=== PATIENT | female | born 1965 | race Caucasian/White ===

== ENCOUNTER 2019-11-26 07:17 | Inpatient (IN) | payer BC ==
[2019-11-21 12:55] VITALS: BMI 39.5
[2019-11-26] MEDS ORDERED: ROCURONIUM BROMIDE 50 MG/5 ML SYRINGE ONE (07:54)
[2019-11-26] MEDS ORDERED: fentaNYL CITRATE 250 MCG/5 ML VIAL ONE (07:54)
[2019-11-26] MEDS ORDERED: DEXAMETHASONE SOD PHOSPHATE 4 MG/1 ML VIAL ONE (07:54)
[2019-11-26] MEDS ORDERED: SUCCINYLCHOLINE CHLORIDE 200 MG/10 ML SYRINGE ONE (07:54)
[2019-11-26] MEDS ORDERED: ceFAZolin SODIUM 1 GM VIAL ONE (07:54)
[2019-11-26] MEDS ORDERED: PROPOFOL 20 ML ONE ×2 (07:54)
[2019-11-26] MEDS ORDERED: SODIUM CHLORIDE 0.9% P/F 10 ML VIAL IJ ONE (07:54)
[2019-11-26] MEDS ORDERED: EPHEDRINE SULFATE/0.9% NACL/PF 50 MG/10 ML SYRINGE NR ONE (07:55)
[2019-11-26] MEDS ORDERED: ROPIVACAINE HCL 0.5% 30ML VIAL ONE (08:14)
[2019-11-26] MEDS ORDERED: MIDAZOLAM HCL 2 MG/2 ML SINGLE DOSE VIAL ONE (08:14)
[2019-11-26] MEDS ORDERED: HYDROmorphone HCL CARPU-JECT 1 MG/1 ML DISP.SYRIN IVPUSH PRN (08:35)
[2019-11-26] MEDS ORDERED: ONDANSETRON 4 MG/2 ML VIAL IVPUSH PRN (08:35)
[2019-11-26] MEDS ORDERED: LACTATED RINGERS SOLUTION 1,000 ML IV SCH (08:45)
[2019-11-26] MEDS ORDERED: ACETAMINOPHEN INJECTION 100 ML IVPB ONE (09:46)
[2019-11-26] MEDS ORDERED: SCOPOLAMINE HYDROBROMIDE 1 PATCH PATCH.TD72 ONE (09:46)
--- NOTE | 2019-11-26 09:49 | HP ---
Admitting History and Physical - Admission Chief Complaint: Morbid obesity History Source: Patient Limitations to Obtaining History: No Limitations - Past Medical History Cardiovascular: Yes: AFIB, Other (Right bundle branch block) Pulmonary: Yes: COPD - Past Surgical History Additional Past Surgical History: Rotator cuff surgery Cholecystectomy - Advance Directives Advance Directives: Yes: Health Care Proxy - Smoking History Smoking history: Never smoked Have you smoked in the past 12 months: No - Social History ADL: Independent Home Medications - Allergies Allergies/Adverse Reactions: Allergies Allergy/AdvReac Type Severity Reaction Status Date / Time montelukast [From Singulair] Allergy Verified 11/21/19 12:37 moxifloxacin [From Avelox] Allergy Hives Verified 11/21/19 12:37 combined fruit Allergy Uncoded 11/21/19 12:37 mold Allergy Uncoded 11/21/19 12:37 red shellfish Allergy Uncoded 11/21/19 12:37 - Home Medications Home Medications: Ambulatory Orders Budesonide/Formeterol Fumarate [SYMBICORT 160/4.5mcg -] 1 inh PO BID 11/21/19 Escitalopram Oxalate [Lexapro -] 5 mg PO DAILY 11/21/19 Levothyroxine [Synthroid -] 75 mcg PO HS 11/21/19 Metoprolol Tartrate [Lopressor -] 25 mg PO BID 11/21/19 Docusate Sodium [Colace -] 100 mg PO TID #90 capsule 11/26/19 Famotidine [Pepcid] 20 mg PO BID #60 tablet 11/26/19 Ondansetron [Zofran -] 8 mg PO TID #30 tablet 11/26/19 Oxycodone HCl/Acetaminophen [Percocet 5-325 mg Tablet] 1 - 2 tab PO Q4H #28 tablet MDD 4 11/26/19 Family Medical History Family History: Unremarkable Review of Systems - Review of Systems Constitutional: denies: Chills, Fever HENT: reports: No Symptoms Neck: reports: No Symptoms Cardiovascular: reports: No Symptoms Respiratory: reports: No Symptoms Gastrointestinal: reports: No Symptoms Neurological: reports: No Symptoms Pain Intensity: 0 Physical Examination Vital Signs: Vital Signs Temperature 98.3 F 11/26/19 08:04 Pulse Rate 82 11/26/19 08:04 Respiratory Rate 18 11/26/19 08:04 Blood Pressure 113/80 11/26/19 08:04 O2 Sat by Pulse Oximetry (%) Constitutional: Yes: Calm HENT: Yes: WNL Neck: Yes: WNL Cardiovascular: Yes: WNL Respiratory: Yes: WNL Gastrointestinal: Yes: Soft, Abdomen, Obese Neurological: Yes: Alert, Oriented Problem List - Problems (1) Morbid obesity due to excess calories Code(s): E66.01 - MORBID (SEVERE) OBESITY DUE TO EXCESS CALORIES Assessment/Plan Laparoscopic possible open vertical sleeve gastrectomy possible liver biopsy, upper endoscopy
[2019-11-26] MEDS ORDERED: NEOSTIGMINE METHYLSULFATE 0.5 MG/ML - 10 ML MDV ONE (10:37)
[2019-11-26] MEDS ORDERED: GLYCOPYRROLATE 0.2 MG/1 ML VIAL ONE (10:38)
[2019-11-26] MEDS ORDERED: ONDANSETRON 4 MG/2 ML VIAL ONE (10:56)
[2019-11-26] MEDS ORDERED: BUPIVACAINE HCL/PF 0.25% (2.5MG/ML) 10 ML VIAL IJ ONE (11:15)
[2019-11-26] MEDS ORDERED: HYDROmorphone HCL CARPU-JECT 1 MG/1 ML DISP.SYRIN IVPB PRN (11:21)
--- NOTE | 2019-11-26 11:25 | OPR ---
Operative Note Operative Date: 11/26/19 Pre-Operative Diagnosis: Morbid obesity Operation: 1. Diagnostic laparoscopy. 2. Laparoscopic vertical sleeve gastrectomy. 3. Laparoscopic wedge liver biopsy. 4. Laparoscopic oversewing of gastric staple line Post-Operative Diagnosis: Same as Pre-op (as well as hepatomegaly and oozing from gastric staple line) Surgeon: Kirill Luna Shirt Sorter: Kiko Welch Anesthesia: General Specimens Removed: Greater curvature of stomach. Liver biopsy. Estimated Blood Loss (mls): 30 Drains & Tubes with Location: 36 Fr Bougie Operative Report Dictated: Yes
[2019-11-26] MEDS ORDERED: FAMOTIDINE 20 MG/50 ML IVPB 20 MG/50 ML MG IVPB ONE (11:27)
[2019-11-26] MEDS: METOCLOPRAMIDE HCL INJECTION 10 MG/2 ML VIAL IVPUSH SCH ×3 (11:28→22:42)
[2019-11-26] MEDS ORDERED: SODIUM CHLORIDE 1,000 ML IV SCH (11:30)
[2019-11-26] MEDS: ONDANSETRON 4 MG/2 ML VIAL IVPUSH SCH ×4 (11:31→22:42)
[2019-11-26] MEDS ORDERED: FAMOTIDINE 20 MG PREMIXED IVPB IVPB ONE (11:40)
[2019-11-26] MEDS: HYDROmorphone HCL CARPU-JECT 1 MG/1 ML DISP.SYRIN IVPUSH PRN ×2 (11:50→12:10)
[2019-11-26] MEDS ORDERED: HYDROmorphone HCL 0.5 MG/0.5 ML SYRINGE ONE ×2 (11:52→12:10)
[2019-11-26 12:05] LABS: HEMOGLOBIN 12.4 GM/dl (10.7-15.3); MCH 29.7 pg (25.7-33.7); PLATELET COUNT 317 K/MM3 (134-434); RBC 4.16 M/mm3 (3.60-5.2); WHITE BLOOD COUNT 11.9 K/mm3 (4.0-10.8)
[2019-11-26 12:44] LABS: ALBUMIN 3.9 g/dl (3.4-5.0); BILIRUBIN,TOTAL 0.6 mg/dl (0.2-1); CALCIUM 8.4 mg/dl (8.5-10); CREATININE 0.6 mg/dl (0.55-1.3); POTASSIUM 4.2 mmol/L (3.5-5.1); TOT PROT 7.1 g/dl (6.4-8.2)
[2019-11-26 12:52] LABS: HEMATOCRIT 36.8 % (32.4-45.2); MCHC 33.6 g/dl (32.0-36.0); MEAN CELL VOLUME 88.4 fl (80-96); MEAN PLT VOLUME 7.8 fl (7.5-11.1); RDW 14.4 % (11.6-15.6)
[2019-11-26] MEDS: ACETAMINOPHEN 1000 MG/100 ML VIAL (NON FORMULARY) IVPB SCH ×3 (14:35→22:42)
[2019-11-26] MEDS: BUDESONIDE/FORMETEROL FUMARATE 160/4.5 mcg INHALER IH SCH (22:00)
[2019-11-26] MEDS: ENOXAPARIN NA (PORCINE) 40 MG/0.4 ML DISP.SYRIN SQ SCH (22:00)
[2019-11-26] MEDS: FAMOTIDINE 20 MG/50 ML IVPB 20 MG/50 ML MG IVPB SCH (22:01)
--- NOTE | 2019-11-26 23:53 | SPEC ---
DATE OF OPERATION: 11/26/2019 SURGEON: Kirill Luna MD COREMAKING MACHINE OPERATOR: Kiko Welch MD PLACE OF SERVICE: [facility], [address] [place] [address]. PREOPERATIVE DIAGNOSIS: Morbid obesity. POSTOPERATIVE DIAGNOSIS: Morbid obesity, hepatomegaly, and oozing from gastric staple line. PROCEDURE: 1. Diagnostic laparoscopy. 2. Laparoscopic vertical sleeve gastrectomy. 3. Laparoscopic wedge liver biopsy. 4. Laparoscopic oversewing of gastric staple line for oozing. SPECIMEN: 1. Greater curvature of the stomach. 2. Liver biopsy. ESTIMATED BLOOD LOSS: 30 mL. DRAINS: None. ANESTHESIA: GET. TUBE: Bougie 36-Polish. REASON FOR PROCEDURE: This is a 54-year-old female who presents for weight loss options. I have described different options. She decided to proceed with laparoscopic, possible open vertical sleeve gastrectomy, possible liver biopsy, upper endoscopy. RISKS AND BENEFITS: After describing the different options for weight loss management, the patient decided to proceed with a laparoscopic, possible open vertical sleeve gastrectomy. The patient was seen by the respective subspecialties and cleared for surgery. The risks and benefits of the procedure were explained. These included bleeding, infection, hernia, VT, DVT, PE, injury to surrounding structures including the liver, colon, bowel, spleen, esophagus, vessel injury, nerve injury, weight regain, gastric leak, staple line leak, sleeve leak, obstruction, vitamin deficiency, hair loss and as some of the possible complications. The patient understood and signed informed consent. DESCRIPTION OF PROCEDURE: The patient was placed supine on the operating room table. The patient underwent general endotracheal intubation. The arms were brought out at 90 degrees and secured. A footboard was placed and the legs were secured laterally with padding. The abdomen was prepped and draped in the usual sterile fashion. A timeout was performed. An incision was made in the left upper quadrant and a Veress needle inserted. Pneumoperitoneum was established. Subsequently, the Veress needle was removed and a 5-mm trocar was placed under direct visualization with the laparoscope. The laparoscopic camera was then inserted and inspection of the abdominal cavity was performed. An incision was then made in the supraumbilical area and a 15-mm trocar was placed under direct visualization. A 5-mm trocar was then placed in the right upper quadrant and a 5-mm trocar was placed below the left subcostal margin. A stab wound was made in the subxiphoid area and a Tiffany clamp inserted and removed to dilate the tract. A Srinivasa liver retractor was inserted. The post was secured at the bedside by the nursing staff. The patient was placed in steep reverse Trendelenburg position and the Srinivasa liver retractor was used to secure the liver towards the anterior abdominal wall. The pylorus was identified and 6 cm proximal to it, the lesser sac was entered using the LigaSure device. All lateral attachments to the greater curvature of the stomach, including the short gastric vessels, were ligated using the LigaSure device toward the gastrosplenic and gastrophrenic ligaments. Once this was done in its entirety, it was confirmed that all tubes within the nasal or oropharyngeal cavity, including a temperature probe were removed by Anesthesia. The bougie was then inserted by Anesthesia. Transection of the stomach was then begun staying adjacent to the bougie but away from the angularis. Transection of the stomach was performed near the portion of the stomach where the lesser sac was entered. Two laparoscopic Endo-MARBELLA black zeynep were used at this location. Laparoscopic Endo MARBELLA purple staple loads were then used for the remainder of the transection until the greater curvature of the stomach was fully transected. This was done staying close to the bougie. Care was taken to stay away from the angle of His cephalad. The staple line was then inspected. Hemostasis was identified. A leak test was then performed. It was clamped distally to the staple line. Irrigation solution was placed in the left upper quadrant and air was insufflated by Anesthesia into the sleeve. No leaks were identified. No obstruction was identified. This was done through the entirety of the staple line. The stomach was suctioned and the bougie removed fully intact under direct visualization. At this point, the irrigation solution was suctioned and again, hemostasis was noted. A wedge liver biopsy was then performed. The left lobe of the liver was identified. A portion of the edge of the left lobe of the liver was grasped. Using electrocautery, a wedge of the left liver was excised. The specimen was removed and sent off the field. Hemostasis of the wedge liver biopsy site was attained and noted using electrocautery. The 15-mm supraumbilical trocar was then removed and the greater curvature specimen removed from the site using a sponge stick mendoza. A Frankie-Dakotah device was then used to close the fascia with a 0 Vicryl suture at the site. Again, hemostasis was noted. The Srinivasa liver retractor was then removed under direct visualization. Pneumoperitoneum was desufflated. Hemostasis was noted at all incision sites and Marcaine was injected at all incision sites. A 3-0 Vicryl suture was used to close the deep subcutaneous tissue at the 15-mm incision site. All incision sites were closed using 4-0 Biosyn. Sterile dressings were applied. The patient tolerated the procedure well and was transferred to the recovery room in stable condition. Please note, that because of oozing at the gastric staple line, oversewing of the staple line was needed with an Endo Stitch device. All hemostasis was noted. Patient tolerated the procedure well and transferred to the recovery room in stable condition. Robin [id number]
[2019-11-27] MEDS: ONDANSETRON 4 MG/2 ML VIAL IVPUSH SCH ×3 (03:30→11:30)
[2019-11-27] MEDS: METOCLOPRAMIDE HCL INJECTION 10 MG/2 ML VIAL IVPUSH SCH ×2 (04:53→10:48)
[2019-11-27 06:17] VITALS: BP 102/61; PULSE 76; TEMP 98.4
[2019-11-27] MEDS: ACETAMINOPHEN 1000 MG/100 ML VIAL (NON FORMULARY) IVPB SCH (06:32)
[2019-11-27] MEDS ORDERED: LEVOTHYROXINE NA 75 MCG TABLET (FP) PO SCH (07:00)
--- NOTE | 2019-11-27 07:54 | DS ---
Physical Exam: SUBJECTIVE: Patient seen and examined this am. She had some nausea overnight which improved with medications. No CP or SOB. Abdominal pain, controlled. Voiding without difficulty. OBJECTIVE: Vital Signs Period Temp Pulse Resp BP Sys/[place] Pulse Ox Last 24 Hr 97.7 F-98.4 F 59-82 18-20 102-142/46-80 95-100 PHYSICAL EXAM GENERAL: The patient is awake, alert, and fully oriented, in no acute distress. LUNGS: Breath sounds equal, clear to auscultation bilaterally, no wheezes, no crackles, no accessory muscle use. HEART: Regular rate and rhythm.. ABDOMEN: Soft, nontender, nondistended. Inc tenderness. Inc c/d/i. EXTREMITIES: b/l soft, no calf tenderness or swelling noted SCDS in place. LABS Laboratory Results - last 24 hr 11/26/19 11/26/19 11:30 11:30 WBC 11.9 H RBC 4.16 Hgb 12.4 Hct 36.8 MCV 88.4 MCH 29.7 MCHC 33.6 RDW 14.4 Plt Count 317 MPV 7.8 Sodium 135 L Potassium 4.2 Chloride 104 Carbon Dioxide 21 Anion Gap 10 BUN 10.0 Creatinine 0.6 Est GFR (CKD-EPI)AfAm 118.09 Est GFR (CKD-EPI)NonAf 101.89 Random Glucose 112 H Calcium 8.4 L Total Bilirubin 0.6 AST 37 ALT 31 Alkaline Phosphatase 57 Total Protein 7.1 Albumin 3.9 CBC, BMP 11/27/19 07:15 11/27/19 07:15 HOSPITAL COURSE: HOSPITAL COURSE: The patient was admitted to the Med-Surg Unit after elective bariatric surgery. Now, s/p laparoscopic vertical sleeve gastrectomy. The day of surgery, the patient ambulated the hallways with assistance. The patient was monitored with remote tele/continuous pulse ox. Narcotic and non-narcotic pain management control was achieved with oral and IV pain control. Upper GI series was obtained the following morning and no leak, extravastion or gastric outlet obstruction. Started on a Bariatric Stage 1 diet and tolerated well. Becky-operative IV ABX were administered in addition to GI prophylaxis. DVT prophylaxis was achieved with SCDs and early ambulation. The discharge instructions and an oral pain management plan were reviewed with the patient. All questions answered. Above plan discussed with Dr. Luna and agreed. Minutes to complete discharge: 20 <Metzen,Abigail - Last Filed: 11/27/19 15:32> Physical Exam: SUBJECTIVE: Patient seen and examined OBJECTIVE: Vital Signs Period Temp Pulse Resp BP Sys/[place] Pulse Ox Last 24 Hr 98.3 F-98.4 F 73-79 18-18 102-120/46-61 98-100 PHYSICAL EXAM GENERAL: The patient is awake, alert, and fully oriented, in no acute distress. HEAD: Normal with no signs of trauma. EYES: PERRL, extraocular movements intact, sclera anicteric, conjunctiva clear. ENT: Ears normal, nares patent, oropharynx clear without exudates, moist mucous membranes. NECK: Trachea midline, full range of motion, supple. LUNGS: Breath sounds equal, clear to auscultation bilaterally, no wheezes, no crackles, no accessory muscle use. HEART: Regular rate and rhythm, S1, S2 without murmur, rub or gallop. ABDOMEN: Soft, nontender, nondistended, normoactive bowel sounds, no guarding, no rebound, no hepatosplenomegaly, no masses. EXTREMITIES: 2+ pulses, warm, well-perfused, no edema. NEUROLOGICAL: Cranial nerves II through XII grossly intact. Normal speech, gait not observed. PSYCH: Normal mood, normal affect. SKIN: Warm, dry, normal turgor, no rashes or lesions noted. LABS Laboratory Results - last 24 hr 11/27/19 11/27/19 07:15 07:15 WBC 12.2 H RBC 3.65 Hgb 11.0 Hct 32.2 L MCV 88.3 MCH 30.1 MCHC 34.0 RDW 14.0 Plt Count 297 MPV 7.4 L Sodium 137 Potassium 4.4 Chloride 105 Carbon Dioxide 24 Anion Gap 8 BUN 10.0 Creatinine 0.6 Est GFR (CKD-EPI)AfAm 118.09 Est GFR (CKD-EPI)NonAf 101.89 Random Glucose 94 Calcium 8.1 L Total Bilirubin 0.5 AST 33 ALT 30 Alkaline Phosphatase 48 Total Protein 6.0 L Albumin 3.2 L HOSPITAL COURSE: Date of Admission:11/26/19 Date of Discharge: 11/27/19 Agree POD 1 Pain controlled Vital Signs Period Temp Pulse Resp BP Sys/[place] Pulse Ox Last 24 Hr 98.3 F-98.4 F 73-79 18-18 102-120/46-61 98-100 CBC,CMP WBC 12.2 K/mm3 (4.0-10.8) H 11/27/19 07:15 RBC 3.65 M/mm3 (3.60-5.2) 11/27/19 07:15 Hgb 11.0 GM/dl (10.7-15.3) 11/27/19 07:15 Hct 32.2 % (32.4-45.2) L 11/27/19 07:15 MCV 88.3 fl (80-96) 11/27/19 07:15 MCH 30.1 pg (25.7-33.7) 11/27/19 07:15 MCHC 34.0 g/dl (32.0-36.0) 11/27/19 07:15 RDW 14.0 % (11.6-15.6) 11/27/19 07:15 Plt Count 297 K/MM3 (134-434) 11/27/19 07:15 MPV 7.4 fl (7.5-11.1) L 11/27/19 07:15 Sodium 137 mmol/L (136-145) 11/27/19 07:15 Potassium 4.4 mmol/L (3.5-5.1) 11/27/19 07:15 Chloride 105 mmol/L (98-107) 11/27/19 07:15 Carbon Dioxide 24 mmol/L (21-32) 11/27/19 07:15 Anion Gap 8 MMOL/L (8-16) 11/27/19 07:15 BUN 10.0 mg/dl (7-18) 11/27/19 07:15 Creatinine 0.6 mg/dl (0.55-1.3) 11/27/19 07:15 Est GFR (CKD-EPI)AfAm 118.09 11/27/19 07:15 Est GFR (CKD-EPI)NonAf 101.89 11/27/19 07:15 Random Glucose 94 mg/dl (74-106) 11/27/19 07:15 Calcium 8.1 mg/dl (8.5-10) L 11/27/19 07:15 Total Bilirubin 0.5 mg/dl (0.2-1) 11/27/19 07:15 AST 33 U/L (15-37) 11/27/19 07:15 ALT 30 U/L (13-61) 11/27/19 07:15 Alkaline Phosphatase 48 U/L (45-117) 11/27/19 07:15 Total Protein 6.0 g/dl (6.4-8.2) L 11/27/19 07:15 Albumin 3.2 g/dl (3.4-5.0) L 11/27/19 07:15 UGI: no leak/obstruction Clears Discharge home <Kirill Luna - Last Filed: 11/27/19 16:18> Discharge Summary Problems reviewed: Yes Current Active Problems Hepatomegaly (Acute) Morbid obesity due to excess calories (Acute) - Home Medications Comprehensive Discharge Medication List: Ambulatory Orders Budesonide/Formeterol Fumarate [SYMBICORT 160/4.5mcg -] 1 inh PO BID 11/21/19 Escitalopram Oxalate [Lexapro -] 5 mg PO DAILY 11/21/19 Levothyroxine [Synthroid -] 75 mcg PO HS 11/21/19 Metoprolol Tartrate [Lopressor -] 25 mg PO BID 11/21/19 Docusate Sodium [Colace -] 100 mg PO TID #90 capsule 11/26/19 Famotidine [Pepcid] 20 mg PO BID #60 tablet 11/26/19 Ondansetron [Zofran -] 8 mg PO TID #30 tablet 11/26/19 Oxycodone HCl/Acetaminophen [Percocet 5-325 mg Tablet] 1 - 2 tab PO Q4H #28 tablet MDD 4 11/26/19 <Abigail Rawls - Last Filed: 11/27/19 15:32> Current Active Problems Hepatomegaly (Acute) Morbid obesity due to excess calories (Acute) - Home Medications Comprehensive Discharge Medication List: Ambulatory Orders Budesonide/Formeterol Fumarate [SYMBICORT 160/4.5mcg -] 1 inh PO BID 11/21/19 Escitalopram Oxalate [Lexapro -] 5 mg PO DAILY 11/21/19 Levothyroxine [Synthroid -] 75 mcg PO HS 11/21/19 Metoprolol Tartrate [Lopressor -] 25 mg PO BID 11/21/19 Docusate Sodium [Colace -] 100 mg PO TID #90 capsule 11/26/19 Famotidine [Pepcid] 20 mg PO BID #60 tablet 11/26/19 Ondansetron [Zofran -] 8 mg PO TID #30 tablet 11/26/19 Oxycodone HCl/Acetaminophen [Percocet 5-325 mg Tablet] 1 - 2 tab PO Q4H #28 tablet MDD 4 11/26/19 <JeremyGiselleKirill - Last Filed: 11/27/19 16:18> Reason For Visit: MORBID OBESITY Condition: Stable - Instructions Diet, Activity, Other Instructions: [address] Kirill Luna M.D. [address] [facility] [address] [place] [address] Robotic, [place]ariatric [place] [address] Postoperative Instructions for Bariatric Surgery Activity: Resume normal everyday activity as tolerated. You may walk and climb stairs without any limitation. We encourage you to walk as often as you can Do not lift anything more than 10 pounds for 8 weeks. At that time, you can return to full activity, including the gym, without limitation. Do not drive a motor vehicle while taking prescribes narcotic pain medication. Wound Care: If you have a bandage in place, leave it on for 3 days. At that time you may remove the outer bandage. If there are strips of tape on the skin after removing the outer bandage, leave them in place. They will fall off by themselves. Do not remove them. If there is clear glue on the skin after removing the outer bandage, leave it in place. Do not pick at it or peel it off. You may shower after taking the outer bandage off, 3 days after your surgery. If incisions become red, warm or open, please call the office. Diet: Continue a sugar-free, non-carbonated Clear liquid diet three times a day for the first week-Stage I diet. In addition, you should drink 8 ounces of water every hour. When drinking, sips should be slow and steady, not large and quick. After the first week, call the office to be advanced to the next dietary stage. Do not advance stages until instructed. Your diet will be advanced over the phone each week. Medications/Pain Management: You may resume previous medications unless told otherwise. The pills may be swallowed whole or broken if scored. You may take the prescribed narcotic pain medication as needed. If the narcotic medication is not needed for pain control, you may take Tylenol. Avoid all other pain medications including Advil, Ibuprofen, Motrin, Aspirin, Naprosyn, Aleve, Celebrex. You will receive Pepcid. Please take this twice a day as prescribed. Dizziness,Headaches/Gas Pain: Make sure you are getting enough fluids daily. Patients on diuretics or water pills may need medication adjusted. Some fluids such as broth or Gatorade may help. Gas pains are common in the first few weeks after surgery. At times they can be worse than surgical pain. Walking can help. You can also use Mylanta, Maalox, or Gas-X. Vomiting/Nausea: This may occur if you eat too fast, don't chew, or eat too much. Go back to fluids. If the vomiting or nausea persists, call the office. Constipation/Diarrhea: You may experience a change in bowel habits. Many things affect this, including a decrease in food intake, not enough fluid and taking pain medication. Some people experience diarrhea after the barium swallow in x-ray. If either persist, call the office. Follow up: Call the office at [phone] for an appointment 2 weeks after your surgical procedure. Disposition: HOME Problem List - Problems (1) Morbid obesity due to excess calories Code(s): E66.01 - MORBID (SEVERE) OBESITY DUE TO EXCESS CALORIES <Kirill Luna - Last Filed: 11/27/19 16:18> This patient is new to me today: Yes Date on this admission: 11/27/19 Emergency Visit: No Critical Care patient: No - Discharge Referral Referred to [facility] Med P.C.: No <Abigail Rawls - Last Filed: 11/27/19 15:32>
[2019-11-27 08:16] LABS: HEMATOCRIT 32.2 % (32.4-45.2); MCH 30.1 pg (25.7-33.7); MEAN CELL VOLUME 88.3 fl (80-96); MEAN PLT VOLUME 7.4 fl (7.5-11.1); PLATELET COUNT 297 K/MM3 (134-434); RBC 3.65 M/mm3 (3.60-5.2); WHITE BLOOD COUNT 12.2 K/mm3 (4.0-10.8)
[2019-11-27 08:18] LABS: ALBUMIN 3.2 g/dl (3.4-5.0); BILIRUBIN,TOTAL 0.5 mg/dl (0.2-1); CALCIUM 8.1 mg/dl (8.5-10); CREATININE 0.6 mg/dl (0.55-1.3); POTASSIUM 4.4 mmol/L (3.5-5.1)
[2019-11-27] MEDS: BUDESONIDE/FORMETEROL FUMARATE 160/4.5 mcg INHALER IH SCH (10:47)
[2019-11-27] MEDS: FAMOTIDINE 20 MG/50 ML IVPB 20 MG/50 ML MG IVPB SCH (10:47)
[2019-11-27] MEDS: ENOXAPARIN NA (PORCINE) 40 MG/0.4 ML DISP.SYRIN SQ SCH (10:47)
--- NOTE | 2019-11-29 16:27 | PATH ---
Surgical Pathology Report Patient Name: DAVIS OLIVIER Med. Rec. #: [id number] /Age/Gender: 1965 (Age: 54) / F Account: [id number] [facility] Taken: 11/26/2019 Received: 11/26/2019 Reported: 11/29/2019 Physicians: Kirill Luna M.D. Specimen(s) Received A: GREATER CURVATURE STOMACH B: LIVER BIOPSY Clinical History Morbid obesity Final Diagnosis A. GREATER CURVATURE, STOMACH, LAPAROSCOPIC GASTRIC SLEEVE EXCISION: PORTION OF STOMACH SHOWING MILD CHRONIC MUCOSAL INFLAMMATION. IMMUNOSTAIN IS NEGATIVE FOR H. PYLORI ORGANISMS. B. LIVER, BIOPSY: LIVER SHOWING MILD STEATOSIS (6-7 %) AND MINIMAL STEATOHEPATITIS (GRADE 1). TRICHROME STAIN SHOWS MILD PERISINUSOIDAL FIBROSIS (STAGE 1). IRON STAIN SHOWS MODERATE INCREASE IN IRON DEPOSITS, PREDOMINANTLY WITHIN KUPFFER CELLS (GRADE 3 OF 4; MODIFIED ELMER GRADING SCHEME). (SEE NOTE). Note: The Non-Alcoholic Steatosis (ADI) score is 3/8 (steatosis: 1/3; lobular inflammation: 1/3; hepatocyte balloonin/3). The ADI fibrosis stage is 1(a)/4. Increase in hepatic iron deposits may be seen in association with hereditary hemochromatosis and more commonly, in cases of secondary hemosiderosis resulting from various causes such as inflammatory conditions including alcoholic and non-alcoholic fatty liver disease, hemolysis and frequent transfusions, among others. In this biopsy, the presence of iron deposits predominantly within Kupffer cells favors secondary causes of siderosis. Correlation with clinical / family history, serum iron indices and possibly hepatic iron index (HII) testing and/or HFE-mutation analysis may be useful. Electronically Signed Kami Allan M.D. Gross Description A. Received in formalin, labeled "greater curvature of stomach," is an 80 gram, 19.0 x 2.5 x 2.3 cm. portion of stomach with a stapled margin of resection. The serosa is mustafa-olivas with minimal attached fat. The mucosa is mustafa-pink with normal folds. No mucosal masses are identified. Home Service Advisor sections are submitted in one cassette. B. Received in formalin labeled "liver biopsy," is a 3.0 x 1.5 x 0.5 cm mustafa, irregular portion of soft tissue, consistent with a liver biopsy. Home Service Advisor sections are submitted in one cassette. 11/27/2019 [facility]/27[facility]2019
== END 2019-11-27 13:20 | disposition home or self-care (01) | DRG 621 ==
LOC: FM/S 07:17
PROVIDERS: ADMIT Surgery; ATTEND Surgery
PROC: 0DB64Z3 Excision of Stomach, Percutaneous Endoscopic Approach, Vertical (ICD-10-PCS; principal; 2019-11-26 10:05)
PROC: 0FB24ZX Excision of Left Lobe Liver, Percutaneous Endoscopic Approach, Diagnostic (ICD-10-PCS; 2019-11-26 10:05)
DX: E66.01 Morbid (severe) obesity due to excess calories (principal); Z68.38 Body mass index [BMI] 38.0-38.9, adult; R16.0 Hepatomegaly, not elsewhere classified; I48.91 Unspecified atrial fibrillation; I45.10 Unspecified right bundle-branch block
CPT/HCPCS: 36415; 74240-TC-FY; 80053; 85027; 88305-TC; 94760; J0131